=== PATIENT | male | born 1955 | race Caucasian/White ===

== ENCOUNTER 2024-05-23 06:46 | Emergency (ER) | payer MEDICARE ==
[2024-05-23 07:10] VITALS: RESP 18; TEMP 97.4
[2024-05-23 07:11] VITALS: BP 139/84; PULSE 93; O2SAT 96
--- NOTE | 2024-05-23 08:01 | ERPHSYRPT ---
- History of Present Illness Time Seen by Provider: 05/23/24 07:55 Source: patient Exam Limitations: no limitations Patient Subjective Stated Complaint: pt states he thinking he has a sinus infections Triage Nursing Assessment: pt ambulated into the er; pt is axo x4; c/o sinus pain; pt has nasal congestion; pt states 5/10 pain to face/sinus; dry hacking cough present; clear lung sounds in all lobes; skin PDW; no respiratory distress present; vitals wnl Physician History: 69 years old male with a history of hypertension, hyperlipidemia, diabetes mellitus, chronic issues with sinuses presented to the ER with increased congestion and bilateral maxillary sinus pain and heavy feeling. Reports mild soreness in the throat. No fever or chills reported. Reports having similar symptoms multiple times in the past needing antibiotics. No difficulty breathing. Allergies/Adverse Reactions: codeine Allergy (Verified 05/23/24 06:53) Home Medications: Amlodipine Besylate 5 mg PO DAILY 05/23/24 [History] Atorvastatin Calcium 80 mg PO DAILY 05/23/24 [History] Insulin Degludec [Tresiba Flextouch U-200] 60 units SQ DAILY 05/23/24 [History] Losartan Potassium 50 mg [Cozaar 50 MG] 50 mg PO DAILY 05/23/24 [History] Metoprolol Succinate 100 mg [Toprol Xl 100 MG] 100 mg PO DAILY 05/23/24 [History] Semaglutide [Ozempic] 1 mg SQ WEEKLY 05/23/24 [History] Hx Tetanus, Diphtheria Vaccination/Date Given: Yes Hx Influenza Vaccination/Date Given: No (2022) Hx Pneumococcal Vaccination/Date Given: No Travel Risk - International Travel Have you traveled outside of the country in past 3 weeks: No - Emerging Infectious Disease Are you exhibiting symptoms associated with any current EIDs: No - Review of Systems Constitutional: No Symptoms Eyes: No Symptoms Ears, Nose, & Throat: Nose Congestion, Sinus Drainage, Throat Swelling Respiratory: No Symptoms Cardiac: No Symptoms Abdominal/Gastrointestinal: No Symptoms Neurological: No Symptoms Hematologic/Lymphatic: No Symptoms Immunological/Allergic: No Symptoms - Past Medical History Pertinent Past Medical History: Yes Neurological History: No Pertinent History ENT History: Cataracts Cardiac History: High Cholesterol, Hypertension Respiratory History: No Pertinent History Endocrine Medical History: Diabetes Type II Musculoskeletal History: Arthritis GI Medical History: No Pertinent History History: No Pertinent History Psycho-Social History: No Pertinent History Male Reproductive Disorders: No Pertinent History - Past Surgical History Past Surgical History: Yes Neuro Surgical History: No Pertinent History Cardiac: No Pertinent History Respiratory: No Pertinent History Gastrointestinal: No Pertinent History Genitourinary: No Pertinent History Musculoskeletal: Orthopedic Surgery Male Surgical History: No Pertinent History Other Surgical History: cyst removal - Social History Smoking Status: Smoker, status unknown Exposure to second hand smoke: No Drug Use: none - Social Determinants of Health Will the patient participate in the screening: Yes Do you worry about a steady place to live?: No Do you have any problems with any of the following?: No known problems In the past 12 months,have you had to go without utilities?: No Transportation Issues: No Has anyone in your support network made you feel unsafe?: No Have you or anyone in your house had to go without enough: No - Nursing Vital Signs Nursing Vital Signs: Initial Vital Signs Temperature 97.4 F 05/23/24 06:54 Pulse Rate 96 H 05/23/24 06:54 Respiratory Rate 18 05/23/24 06:54 Blood Pressure 157/83 05/23/24 06:54 O2 Sat by Pulse Oximetry 97 05/23/24 06:54 Pain Scale Pain Intensity 5 - Physical Exam General Appearance: no apparent distress, alert Eye Exam: bilateral eye: normal inspection, PERRL, EOMI Ear Exam: bilateral ear: auricle normal, canal normal, TM normal Nasal Exam: sinus tenderness Throat Exam: normal, moist mucus membranes, pharynx swelling Neck Exam: normal inspection, non-tender, supple, full range of motion Cardiovascular/Respiratory Exam: normal breath sounds, regular rate/rhythm Neurologic Exam: alert, oriented x 3, cooperative, 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 Has maxillary sinus tenderness. Recommended using Flonase and Claritin and will give a prescription of Augmentin to go home. Outpatient follow-up recommended. Counseled pt/family regarding: diagnosis, need for follow-up Medical Desision Making - Risk of complications The pt has a mod risk of morbidity or mortality based on: Need for prescription drug management - Departure Departure Disposition: Home Clinical Impression: Sinusitis Condition: Stable Critical Care Time: No Referrals: JULES RADER MD [Primary Care Provider] - Follow up with PCP 1 day Instructions: Sinusitis, Adult (DC) Additional Instructions: Take Tylenol/ibuprofen as needed. Use Flonase and Claritin as recommended. Follow-up with primary care for reevaluation. Return to ER for any worsening. Prescriptions: Amox Tr/Potass Clav. 875 mg [Augmentin 875-125 Tablet] 875 mg PO BID #20 tablet
== END 2024-05-23 08:05 | disposition home or self-care (01) ==
LOC: ED 06:46
DX: J32.9 Chronic sinusitis, unspecified (principal); R51.9 Headache, unspecified; I10 Essential (primary) hypertension; E78.5 Hyperlipidemia, unspecified; E11.9 Type 2 diabetes mellitus without complications; Z79.4 Long term (current) use of insulin; Z79.85 Long-term (current) use of injectable non-insulin antidiabetic drugs; Z79.899 Other long term (current) drug therapy
CPT/HCPCS: 99281